=== PATIENT | female | born 1955 | race Caucasian/White ===

== ENCOUNTER 2024-06-18 07:11 | Day surgery (SDC) | payer MEDICARE, BC ==
[~2024-06-18] VITALS: Ht 152.4 cm; Wt 86.8 kg
[2024-06-18] VITALS (10 sets, daily range): BP systolic 118–139; BP diastolic 54–88; PULSE 52–58; RESP 14–16; TEMP 98.1; O2SAT 96–98
[~2024-06-18 07:11] MED LIST: AZIT500T9 PO; FURO-150 PO; GABA-535 PO; LOP12.5T PO; RIVA20TA PO; [UNRECOGNIZED DRUG - CODE] PO
== END 2024-06-18 09:15 | disposition home or self-care (01) ==
LOC: SSTAY O 07:11
PROVIDERS: ATTEND Nurse Practitioner
DX: E04.1 Nontoxic single thyroid nodule (principal); I48.91 Unspecified atrial fibrillation; G62.9 Polyneuropathy, unspecified; Z90.49 Acquired absence of other specified parts of digestive tract; Z90.710 Acquired absence of both cervix and uterus; Z98.891 History of uterine scar from previous surgery; Z98.890 Other specified postprocedural states; Z88.2 Allergy status to sulfonamides
CPT/HCPCS: 10005